=== PATIENT | female | born 1985 ===

== ENCOUNTER → 2017-03-13 | Outpatient (CLI) | payer OTHER ==
[~2017-03-13] MED LIST: BASAGLAR K100 UNIT/1 SC; CIPR500 PO; CYCL10 PO; DUETACT; ESCI5 PO; FENO48 PO; GABA300 PO; GLYB5 PO; GLYMET5; HORMONE; HYDACE5 PO; INS70/30I; LISI20 PO; LISI5 PO; Lomotil Tablet1 EACH PO; METF500 PO; METO100ER PO; NUVA RING; ONDA4ODT MM; ONDA8 PO; Omeprazole20 M1 PO; Pepcid40 MG PO; RIFA300 PO; SULTRIDS PO; Zofran8 MG PO
[2017-03-13 17:15] LABS: BASOPHILS ABSOLUTE AUTO 0.06 K/mm3 (0.00-0.23); BASOPHILS PERCENT AUTO 1 % (0-2); EOSINOPHILS ABSOLUTE AUTO 0.11 K/mm3 (0.00-0.68); EOSINOPHILS PERCENT AUTO 1 % (0-6); Hematocrit 44.6 % (33.0-51.0); Hemoglobin 15.2 g/dL (11.5-16.0); IMMATURE GRAN PERCENT AUTO 1 % (0-1); LYMPHOCYTES ABSOLUTE AUTO 0.86 K/mm3 (0.84-5.20); LYMPHOCYTES PERCENT AUTO 7 % (21-46); MONOCYTES ABSOLUTE AUTO 0.79 K/mm3 (0.16-1.47); MONOCYTES PERCENT AUTO 7 % (4-13); Mean Corpuscular HGB 27.6 pg (26.0-34.0); Mean Corpuscular HGB Conc 34.1 g/dL (31.5-36.5); Mean Corpuscular Volume 81 fL (80-100); NEUTROPHILS ABSOLUTE AUTO 10.31 K/mm3 (1.96-9.15); NEUTROPHILS PERCENT AUTO 84 % (41-73); Platelet Count 255 K/mm3 (150-400); RDW Coefficient Variation 13.7 % (11.7-14.2); RDW Standard Deviation 39.6 fL (35.1-46.3); Red Blood Cell Count 5.51 M/mm3 (3.80-5.20); White Blood Cell Count 12.23 K/mm3 (4.00-11.30)
[2017-03-13 17:31] LABS: Alanine Aminotransfer (ALT/SGP 26 U/L (12-78); Albumin, Blood 3.1 g/dL (3.4-5.0); Albumin/Globulin Ratio 0.7 (0.8-1.8); Alk Phos 87 U/L (40-126); Anion Gap 14 mmol/L (6-16); Aspartate Aminotrans (AST/SGOT 14 U/L (12-37); Bilirubin, Total 0.5 mg/dL (0.1-1.0); Blood Urea Nitrogen 10 mg/dL (8-24); Bun/Creatinine Ratio 9.6 (12.0-20.0); CO2, Blood 21 mmol/L (21-32); Calcium, Blood 8.7 mg/dL (8.5-10.1); Chloride, Blood 99 mmol/L (98-108); Creatinine, Blood 1.04 mg/dL (0.40-1.00); Globulin, Blood 4.3 g/dL (2.2-4.0); Glomerular Filtration Rate >60 (60-); Glucose, Blood 405 mg/dL (70-99); Potassium, Blood 4.1 mmol/L (3.5-5.5); Sodium, Blood 134 mmol/L (136-145); Total Protein, Blood 7.4 g/dL (6.4-8.2)
== END | disposition home or self-care (01) ==
LOC: LAB EV 17:12
PROVIDERS: Physician Assistant Medical
DX: K52.9 Noninfective gastroenteritis and colitis, unspecified (principal)
CPT/HCPCS: 80053; 83690; 85025

== ENCOUNTER → 2017-06-12 | Outpatient (CLI) | payer OTHER ==
[~2017-06-12] MED LIST changes: -Lomotil Tablet1 EACH PO; -Omeprazole20 M1 PO
== END | disposition home or self-care (01) ==
LOC: LAB EV 18:56 → LAB SHORT 18:56
DX: N39.0 Urinary tract infection, site not specified (principal)
CPT/HCPCS: 87077; 87086; 87186

== ENCOUNTER 2017-09-18 13:31 | Emergency (ER) | payer OTHER ==
[~2017-09-18] VITALS: Ht 182.9 cm; Wt 151.9 kg
[2017-09-18 15:18] LABS: BASOPHILS ABSOLUTE AUTO 0.06 K/mm3 (0.00-0.23); BASOPHILS PERCENT AUTO 1 % (0-2); EOSINOPHILS ABSOLUTE AUTO 0.14 K/mm3 (0.00-0.68); EOSINOPHILS PERCENT AUTO 1 % (0-6); Hemoglobin 14.4 g/dL (11.5-16.0); IMMATURE GRAN ABSOLUTE AUTO 0.07 K/mm3 (0.00-0.10); IMMATURE GRAN PERCENT AUTO 1 % (0-1); LYMPHOCYTES ABSOLUTE AUTO 3.28 K/mm3 (0.84-5.20); LYMPHOCYTES PERCENT AUTO 30 % (21-46); MONOCYTES ABSOLUTE AUTO 0.75 K/mm3 (0.16-1.47); MONOCYTES PERCENT AUTO 7 % (4-13); Mean Corpuscular HGB 28.2 pg (26.0-34.0); Mean Corpuscular HGB Conc 34.3 g/dL (31.5-36.5); Mean Corpuscular Volume 82 fL (80-100); Mean Platelet Volume 10.1 fL (9.1-12.4); NEUTROPHILS ABSOLUTE AUTO 6.64 K/mm3 (1.96-9.15); NEUTROPHILS PERCENT AUTO 61 % (41-73); Platelet Count 262 K/mm3 (150-400); RDW Coefficient Variation 12.9 % (11.7-14.2); RDW Standard Deviation 38.5 fL (35.1-46.3); Red Blood Cell Count 5.11 M/mm3 (3.80-5.20); White Blood Cell Count 10.94 K/mm3 (4.00-11.30)
[2017-09-18 15:45] LABS: Alanine Aminotransfer (ALT/SGP 25 U/L (12-78); Albumin, Blood 3.2 g/dL (3.4-5.0); Albumin/Globulin Ratio 0.7 (0.8-1.8); Alk Phos 106 U/L (50-136); Anion Gap 11 mmol/L (6-16); Aspartate Aminotrans (AST/SGOT 9 U/L (12-37); Bilirubin, Total 0.3 mg/dL (0.1-1.0); Blood Urea Nitrogen 11 mg/dL (8-24); Bun/Creatinine Ratio 17.9 (12.0-20.0); CO2, Blood 20 mmol/L (21-32); Calcium, Blood 8.6 mg/dL (8.5-10.1); Chloride, Blood 103 mmol/L (98-108); Creatinine, Blood 0.61 mg/dL (0.40-1.00); Globulin, Blood 4.3 g/dL (2.2-4.0); Glomerular Filtration Rate >60 (60-); Glucose, Blood 471 mg/dL (70-99); Potassium, Blood 4.7 mmol/L (3.5-5.5); Sodium, Blood 134 mmol/L (136-145); Total Protein, Blood 7.5 g/dL (6.4-8.2)
[2017-09-18] MEDS ORDERED: Omeprazole20 M1 PO (16:46)
[2017-09-18] MEDS ORDERED: Lomotil Tablet1 EACH PO (18:42)
== END 2017-09-18 18:55 | disposition home or self-care (01) ==
LOC: ER 13:31
PROVIDERS: Emergency Medicine
DX: R19.7 Diarrhea, unspecified (principal); E11.9 Type 2 diabetes mellitus without complications; I10 Essential (primary) hypertension; Z79.899 Other long term (current) drug therapy; Z79.4 Long term (current) use of insulin
CPT/HCPCS: 36415; 80053; 83690; 85025; 99284

== ENCOUNTER → 2017-11-01 | Outpatient (CLI) | payer OTHER ==
[~2017-11-01] MED LIST changes: +Lomotil Tablet1 EACH PO; +Omeprazole20 M1 PO
== END | disposition home or self-care (01) ==
LOC: LAB SHORT 07:59 → PLD 07:59
DX: N72 Inflammatory disease of cervix uteri (principal); N87.9 Dysplasia of cervix uteri, unspecified
CPT/HCPCS: 88305

== ENCOUNTER 2018-02-13 14:07 | Emergency (ER) | payer OTHER ==
[~2018-02-13] VITALS: Ht 182.9 cm; Wt 147.4 kg
[2018-02-13 15:02] LABS: Source, Urine Clean Catch
[2018-02-13 15:08] LABS: Bilirubin, Urine Neg (Neg); Blood, Urine 5+ (Neg); Glucose Qualitative, Urine 4+ (Neg); Ketones, Urine 1+ (Neg); Leukocyte Esterase, Urine 3+ (Neg); Nitrite, Urine Neg (Neg); Protein, Urine 3+ (Neg); Specific Gravity, Urine 1.025 (1.003-1.022); Urobilinogen, Urine NORM (Normal)
[2018-02-13 15:27] LABS: Appearance, Urine Hazy (Clear); Color, Urine Yellow (P-Yellow)
[2018-02-13 15:28] LABS: White Blood Cells, Urine TNTC /hpf (0-5)
[2018-02-13 15:29] LABS: Squamous Epithelial Cells Few /hpf (Few)
[2018-02-13 15:30] LABS: Bacteria Few /hpf
== END 2018-02-13 16:14 | disposition home or self-care (01) ==
LOC: ER 14:07
PROVIDERS: Physician Assistant
DX: N39.0 Urinary tract infection, site not specified (principal); Z79.899 Other long term (current) drug therapy; Z79.4 Long term (current) use of insulin; E11.9 Type 2 diabetes mellitus without complications; I10 Essential (primary) hypertension; Z87.891 Personal history of nicotine dependence
CPT/HCPCS: 81001; 81025; 87077; 87086; 87186; 99283

== ENCOUNTER → 2018-02-20 | Outpatient (CLI) | payer OTHER | END | disposition home or self-care (01) | LOC: LAB EV 17:32 → LAB SHORT 17:32 | DX: R30.0 Dysuria (principal) | CPT/HCPCS: 87077; 87086; 87106; 87186 ==

== ENCOUNTER 2018-06-03 19:34 | Emergency (ER) | payer OTHER ==
[~2018-06-03] VITALS: Ht 182.9 cm; Wt 145.2 kg
[2018-06-03] MEDS ORDERED: Glucophage1000 MG PO (20:41)
[2018-06-03] MEDS ORDERED: METO50ER PO (20:42)
[2018-06-03] MEDS ORDERED: BASAGLAR K100 UNIT/1 SC (20:43)
[2018-06-03] MEDS ORDERED: Vibramycin100 MG PO (20:50)
== END 2018-06-03 21:17 | disposition home or self-care (01) ==
LOC: ER 19:34
DX: J18.9 Pneumonia, unspecified organism (principal); I10 Essential (primary) hypertension; Z79.899 Other long term (current) drug therapy; Z79.4 Long term (current) use of insulin; Z87.891 Personal history of nicotine dependence
CPT/HCPCS: 71046; 99283-25

== ENCOUNTER → 2018-10-02 | Outpatient (CLI) | payer OTHER ==
[~2018-10-02] MED LIST changes: +ESCITALOPRAM OX10 MG PO; +FENO145 PO; +FLUC200 PO; +Glucophage1000 MG PO; +METFORMIN HCL500 MG PO; +METO50ER PO; +OMEPRAZOLE20 MG PO; +Vibramycin100 MG PO
[2018-10-03 06:10] LABS: Candida species (DNA Probe) Negative (NEGATIVE); G. vaginalis (DNA Probe) Negative (NEGATIVE); T. vaginalis (DNA Probe) Negative (NEGATIVE)
== END | disposition home or self-care (01) ==
LOC: LAB SHORT 19:31 → LAB 19:31
PROVIDERS: Obstetrics & Gynecology
DX: N76.0 Acute vaginitis (principal)
CPT/HCPCS: 87480; 87510; 87660

== ENCOUNTER 2018-10-16 09:56 | Emergency (ER) | payer OTHER ==
[~2018-10-16] VITALS: Ht 182.9 cm; Wt 158.8 kg
[~2018-10-16 09:56] MED LIST changes: -ESCITALOPRAM OX10 MG PO; -FENO145 PO; -FLUC200 PO; -METFORMIN HCL500 MG PO; -OMEPRAZOLE20 MG PO
[2018-10-16] MEDS ORDERED: METFORMIN HCL500 MG PO (10:35)
[2018-10-16] MEDS ORDERED: ESCITALOPRAM OX10 MG PO (10:36)
[2018-10-16] MEDS ORDERED: FENO145 PO (10:37)
[2018-10-16] MEDS ORDERED: OMEPRAZOLE20 MG PO (10:38)
[2018-10-16 11:21] LABS: BASOPHILS ABSOLUTE AUTO 0.04 K/mm3 (0.00-0.23); BASOPHILS PERCENT AUTO 1 % (0-2); EOSINOPHILS ABSOLUTE AUTO 0.08 K/mm3 (0.00-0.68); EOSINOPHILS PERCENT AUTO 1 % (0-6); Hematocrit 39.2 % (33.0-51.0); Hemoglobin 13.2 g/dL (11.5-16.0); IMMATURE GRAN ABSOLUTE AUTO 0.04 K/mm3 (0.00-0.10); IMMATURE GRAN PERCENT AUTO 1 % (0-1); LYMPHOCYTES ABSOLUTE AUTO 2.39 K/mm3 (0.84-5.20); LYMPHOCYTES PERCENT AUTO 32 % (21-46); MONOCYTES ABSOLUTE AUTO 0.47 K/mm3 (0.16-1.47); MONOCYTES PERCENT AUTO 6 % (4-13); Mean Corpuscular HGB 27.9 pg (26.0-34.0); Mean Corpuscular HGB Conc 33.7 g/dL (31.5-36.5); Mean Corpuscular Volume 83 fL (80-100); Mean Platelet Volume 9.7 fL (9.1-12.4); NEUTROPHILS ABSOLUTE AUTO 4.36 K/mm3 (1.96-9.15); NEUTROPHILS PERCENT AUTO 59 % (41-73); Platelet Count 215 K/mm3 (150-400); RDW Coefficient Variation 12.9 % (11.7-14.2); RDW Standard Deviation 38.7 fL (35.1-46.3); Red Blood Cell Count 4.73 M/mm3 (3.80-5.20); White Blood Cell Count 7.38 K/mm3 (4.00-11.30)
[2018-10-16 11:43] LABS: Alanine Aminotransfer (ALT/SGP 20 U/L (12-78); Albumin, Blood 2.7 g/dL (3.4-5.0); Albumin/Globulin Ratio 0.6 (0.8-1.8); Alk Phos 67 U/L (50-136); Anion Gap 7 mmol/L (6-16); Aspartate Aminotrans (AST/SGOT 11 U/L (12-37); Bilirubin, Total 0.3 mg/dL (0.1-1.0); Blood Urea Nitrogen 14 mg/dL (8-24); Bun/Creatinine Ratio 28.8 (12.0-20.0); CO2, Blood 24 mmol/L (21-32); Calcium, Blood 8.4 mg/dL (8.5-10.1); Chloride, Blood 105 mmol/L (98-108); Creatinine, Blood 0.49 mg/dL (0.40-1.00); Globulin, Blood 4.2 g/dL (2.2-4.0); Glomerular Filtration Rate >60 (60-); Glucose, Blood 291 mg/dL (70-99); Potassium, Blood 4.1 mmol/L (3.5-5.5); Sodium, Blood 136 mmol/L (136-145); Total Protein, Blood 6.9 g/dL (6.4-8.2)
[2018-10-16] MEDS ORDERED: FLUC200 PO (12:06)
== END 2018-10-16 12:33 | disposition home or self-care (01) ==
LOC: ER 09:56
PROVIDERS: Emergency Medicine
DX: L03.032 Cellulitis of left toe (principal); L03.031 Cellulitis of right toe; B37.2 Candidiasis of skin and nail; I10 Essential (primary) hypertension; E11.9 Type 2 diabetes mellitus without complications; Z87.891 Personal history of nicotine dependence; Z79.899 Other long term (current) drug therapy; Z79.84 Long term (current) use of oral hypoglycemic drugs
CPT/HCPCS: 80053; 85025; 96365; 99284-25; J1956; J7030

== ENCOUNTER 2019-01-03 13:09 | Day surgery (SDC) | payer OTHER ==
[~2019-01-03] VITALS: Ht 182.9 cm; Wt 137.2 kg
[~2019-01-03 13:09] MED LIST changes: +ESCITALOPRAM OX10 MG PO; +FENO145 PO; +FLUC200 PO; +INSULANPEN; +METFORMIN HCL500 MG PO; +Nuvaring Vagin1 EACH VAG; +OMEPRAZOLE20 MG PO
--- NOTE | 2019-01-03 14:03 | NUR ---
01/03/19 1403 Masha Montero CALL LIGHT WITHIN REACH. FAMILY AT BEDSIDE.
== END 2019-01-03 16:05 | disposition home or self-care (01) ==
LOC: ORSCSDS 13:09
PROVIDERS: Podiatrist
PROC: 0QBN0ZZ Excision of Right Metatarsal, Open Approach (ICD-10-PCS; principal; 2019-01-03 14:30)
DX: M84.871 Other disorders of continuity of bone, right ankle and foot (principal); Q66.89 Other specified congenital deformities of feet; I10 Essential (primary) hypertension; E11.9 Type 2 diabetes mellitus without complications; Z79.899 Other long term (current) drug therapy; E66.01 Morbid (severe) obesity due to excess calories; Z68.41 Body mass index [BMI] 40.0-44.9, adult
CPT/HCPCS: 82947; 88305; 88311; J0690; J2001; J2250; J2704; J3010; J7120

== ENCOUNTER → 2019-02-09 | Outpatient (CLI) | payer OTHER ==
[2019-02-09 14:53] LABS: BASOPHILS ABSOLUTE AUTO 0.05 K/mm3 (0.00-0.23); BASOPHILS PERCENT AUTO 0 % (0-2); EOSINOPHILS ABSOLUTE AUTO 0.22 K/mm3 (0.00-0.68); EOSINOPHILS PERCENT AUTO 2 % (0-6); Hematocrit 38.2 % (33.0-51.0); Hemoglobin 12.8 g/dL (11.5-16.0); IMMATURE GRAN ABSOLUTE AUTO 0.03 K/mm3 (0.00-0.10); IMMATURE GRAN PERCENT AUTO 0 % (0-1); LYMPHOCYTES ABSOLUTE AUTO 3.78 K/mm3 (0.84-5.20); LYMPHOCYTES PERCENT AUTO 32 % (21-46); MONOCYTES ABSOLUTE AUTO 0.66 K/mm3 (0.16-1.47); MONOCYTES PERCENT AUTO 6 % (4-13); Mean Corpuscular HGB 27.4 pg (26.0-34.0); Mean Corpuscular HGB Conc 33.5 g/dL (31.5-36.5); Mean Corpuscular Volume 82 fL (80-100); NEUTROPHILS PERCENT AUTO 60 % (41-73); Platelet Count 281 K/mm3 (150-400); RDW Coefficient Variation 13.2 % (11.7-14.2); RDW Standard Deviation 38.8 fL (35.1-46.3); Red Blood Cell Count 4.68 M/mm3 (3.80-5.20); White Blood Cell Count 11.94 K/mm3 (4.00-11.30)
== END | disposition home or self-care (01) ==
LOC: LAB 14:15 → LAB SHORT 14:15
PROVIDERS: Nurse Practitioner
DX: R22.41 Localized swelling, mass and lump, right lower limb (principal)
CPT/HCPCS: 85025; 85651

== ENCOUNTER → 2019-03-13 | Outpatient (CLI) | payer OTHER | END | disposition home or self-care (01) | LOC: LAB 13:49 → LAB SHORT 13:49 | DX: E11.65 Type 2 diabetes mellitus with hyperglycemia (principal) | CPT/HCPCS: 87070; 87205 ==

== ENCOUNTER → 2019-05-06 | Outpatient (CLI) | payer OTHER | END | disposition home or self-care (01) | LOC: LAB SHORT 19:19 → LAB 19:19 | DX: L03.032 Cellulitis of left toe (principal); L97.521 Non-pressure chronic ulcer of other part of left foot limited to breakdown of skin | CPT/HCPCS: 87070; 87147; 87205 ==

== ENCOUNTER → 2019-10-09 | Outpatient (CLI) | payer OTHER ==
[2019-10-09 15:39] LABS: Source, Urine Clean Catch
[2019-10-09 19:11] LABS: Appearance, Urine Cloudy (Clear); Bilirubin, Urine Neg (Neg); Blood, Urine 4+ (Neg); Color, Urine Yellow (P-Yellow); Glucose Qualitative, Urine Neg (Neg); Ketones, Urine Neg (Neg); Leukocyte Esterase, Urine Neg (Neg); Nitrite, Urine Neg (Neg); Protein, Urine 3+ (Neg); Specific Gravity, Urine 1.025 (1.003-1.022); Urobilinogen, Urine NORM (Normal)
[2019-10-09 19:17] LABS: Amorphous Light (0-Heavy); Bacteria Many /hpf; Mucus Light (0-Heavy); Red Blood Cells, Urine 0-2 /hpf (0-2); Squamous Epithelial Cells Not Seen /hpf (Few)
== END | disposition home or self-care (01) ==
LOC: LAB SHORT 15:36 → LAB 15:36
PROVIDERS: Family Medicine
DX: E86.0 Dehydration (principal); R42 Dizziness and giddiness
CPT/HCPCS: 81001

== ENCOUNTER 2021-04-19 18:29 | Inpatient (IN) | payer OTHER ==
[~2021-04-19] VITALS: Ht 182.9 cm; Wt 140.6 kg
[~2021-04-19 18:29] MED LIST changes: +Buspirone HCl15 MG PO; +LABE100 PO; +PRENATAL TABLE1 EAC2 PO
[2021-04-19 21:21] LABS: BASOPHILS ABSOLUTE AUTO 0.05 K/mm3 (0.00-0.23); BASOPHILS PERCENT AUTO 0 % (0-2); EOSINOPHILS ABSOLUTE AUTO 0.13 K/mm3 (0.00-0.68); EOSINOPHILS PERCENT AUTO 1 % (0-6); Hematocrit 32.5 % (33.0-51.0); IMMATURE GRAN ABSOLUTE AUTO 0.06 K/mm3 (0.00-0.10); IMMATURE GRAN PERCENT AUTO 0 % (0-1); LYMPHOCYTES ABSOLUTE AUTO 3.55 K/mm3 (0.84-5.20); LYMPHOCYTES PERCENT AUTO 23 % (21-46); MONOCYTES ABSOLUTE AUTO 1.03 K/mm3 (0.16-1.47); MONOCYTES PERCENT AUTO 7 % (4-13); Mean Corpuscular HGB 29.3 pg (26.0-34.0); Mean Corpuscular HGB Conc 33.8 g/dL (31.5-36.5); Mean Corpuscular Volume 87 fL (80-100); Mean Platelet Volume 10.3 fL (9.1-12.4); NEUTROPHILS ABSOLUTE AUTO 10.76 K/mm3 (1.96-9.15); NEUTROPHILS PERCENT AUTO 69 % (41-73); Platelet Count 179 K/mm3 (150-400); RDW Coefficient Variation 12.8 % (11.7-14.2); RDW Standard Deviation 39.6 fL (35.1-46.3); Red Blood Cell Count 3.75 M/mm3 (3.80-5.20); White Blood Cell Count 15.58 K/mm3 (4.00-11.30)
[2021-04-19 21:39] LABS: Alanine Aminotransfer (ALT/SGP 18 U/L (12-78); Albumin, Blood 2.2 g/dL (3.4-5.0); Albumin/Globulin Ratio 0.5 (0.8-1.8); Alk Phos 141 U/L (50-136); Anion Gap 9 mmol/L (6-16); Aspartate Aminotrans (AST/SGOT 16 U/L (12-37); Bilirubin, Total 0.1 mg/dL (0.1-1.0); Blood Urea Nitrogen 18 mg/dL (8-24); CO2, Blood 21 mmol/L (21-32); Calcium, Blood 8.6 mg/dL (8.5-10.1); Chloride, Blood 110 mmol/L (98-108); Creatinine, Blood 0.78 mg/dL (0.40-1.00); Globulin, Blood 4.1 g/dL (2.2-4.0); Glomerular Filtration Rate >60 (60-); Glucose, Blood 205 mg/dL (70-99); Potassium, Blood 4.1 mmol/L (3.5-5.5); Sodium, Blood 140 mmol/L (136-145); Total Protein, Blood 6.3 g/dL (6.4-8.2)
[2021-04-19] MEDS ORDERED: Labetalol HCl300 MG PO (21:42)
[2021-04-19] MEDS ORDERED: NIFE30ER PO (21:43)
[2021-04-19 22:01] LABS: Influenza A, PCR NEGATIVE (NEGATIVE); Influenza B, PCR NEGATIVE (NEGATIVE); Resp Syncytial Virus, PCR NEGATIVE (NEGATIVE); SARS-Cov-2 (COVID-19) PCR, MMC NEGATIVE (NEGATIVE)
--- NOTE | 2021-04-20 07:49 | NUR ---
PT'S BLOOD PRESSURES THIS MORNING DURING MY ASSESSMENT WAS 193/96 AND A FEW MINUTES LATER 186/94. EANSONU BURRELL WAS CONTACTED AND WE DISCUSSED HYPERTENSIVE PROTOCOL. EAN GAVE ORDERS TO GIVE 30MG NIFEDIPINE XL, LEBETOLOL 300MG, AND QUICK ACTING 20MG NIFEDIPINE. EAN REPORTED SHE WOULD BE IN THIS AM TO ASSESS PT. EAN REPORTED THAT SHE DID NOT WANT TO START MAGNESIUM AT THIS POINT BUT TO CONTACT HER IF PT'S BP DOES NOT COME DOWN WITH MEDICATIONS.
--- NOTE | 2021-04-20 16:21 | NUR ---
Tiesha BURRELL CONTACTED AND ADVISED THAT PT'S BLOOD PRESSURE WAS 195/92. PROVIDER ORDERED IV 20MG LEBETOLOL AND 200MG LEBETOLOL PO IF SECOND BLOOD PRESSURE 15 MINUTES FROM THE LAST IS ALSO ELEVATED. .
--- NOTE | 2021-04-20 17:30 | NUR ---
Tiesha BURRELL CONTACTED AND TOLD THAT PT WAS GIVEN THE ORDERED 200MG LEBETOLOL PO, 20MG LEBETOLOL IV, THEN 10 MINUTES LATER THE 40MG OF LEBETOLOL IV. PROVIDER WAS TOLD THAT BLOOD PRESSURES ARE STILL 170'S/80'S-190'S/90'S. PROVIDER ADVISED TO GIVE 20MG OF NIFEDIPINE PO AND TO CALL HER IF BP DOES NOT COME DOWN AFTER IT IS GIVEN.
--- NOTE | 2021-04-20 18:53 | NUR ---
PT WAS ONLY GIVEN 50MG OF THE 80MG OF THE LEBETOLOL PROTOCOL DUE TO BP DROPPING TO 129/68 AND PT FEELING SYMPTOMATIC. WILL CONTACT Tiesha BURRELL AND LET HER KNOW.
[2021-04-21 18:55] LABS: BASOPHILS ABSOLUTE AUTO 0.05 K/mm3 (0.00-0.23); BASOPHILS PERCENT AUTO 0 % (0-2); EOSINOPHILS ABSOLUTE AUTO 0.04 K/mm3 (0.00-0.68); EOSINOPHILS PERCENT AUTO 0 % (0-6); Hematocrit 35.3 % (33.0-51.0); Hemoglobin 12.4 g/dL (11.5-16.0); IMMATURE GRAN ABSOLUTE AUTO 0.12 K/mm3 (0.00-0.10); IMMATURE GRAN PERCENT AUTO 1 % (0-1); LYMPHOCYTES ABSOLUTE AUTO 2.27 K/mm3 (0.84-5.20); LYMPHOCYTES PERCENT AUTO 13 % (21-46); MONOCYTES ABSOLUTE AUTO 0.97 K/mm3 (0.16-1.47); MONOCYTES PERCENT AUTO 6 % (4-13); Mean Corpuscular HGB 29.6 pg (26.0-34.0); Mean Corpuscular HGB Conc 35.1 g/dL (31.5-36.5); Mean Corpuscular Volume 84 fL (80-100); Mean Platelet Volume 9.5 fL (9.1-12.4); NEUTROPHILS ABSOLUTE AUTO 13.74 K/mm3 (1.96-9.15); NEUTROPHILS PERCENT AUTO 80 % (41-73); Platelet Count 179 K/mm3 (150-400); RDW Coefficient Variation 12.6 % (11.7-14.2); Red Blood Cell Count 4.19 M/mm3 (3.80-5.20); White Blood Cell Count 17.19 K/mm3 (4.00-11.30)
[2021-04-21 22:20] LABS: PCO2 Cord - Arterial 54.2 mmHg (40-50); PO2 Cord - Arterial < 14 mmHg (16-20); pH Cord - Arterial 7.22 (7.28-7.35)
[2021-04-21 22:23] LABS: PCO2 Cord - Venous 53.8 mmHg (40-50); PO2 Cord - Venous < 14 mmHg (28-32); pH Umbilical Cord - Venous 7.25 (7.26-7.35)
--- NOTE | 2021-04-21 23:00 | NUR ---
MAGNESIUM RESTARTED AT 2G/HR
--- NOTE | 2021-04-21 23:18 | NUR ---
KARLA NOTIFIED OF HIGH BP AND RN OKAY TO GIVE 300MG LABETOLOL PO
[2021-04-22 05:52] LABS: BASOPHILS ABSOLUTE AUTO 0.04 K/mm3 (0.00-0.23); BASOPHILS PERCENT AUTO 0 % (0-2); EOSINOPHILS ABSOLUTE AUTO 0.03 K/mm3 (0.00-0.68); EOSINOPHILS PERCENT AUTO 0 % (0-6); Hemoglobin 9.6 g/dL (11.5-16.0); IMMATURE GRAN PERCENT AUTO 1 % (0-1); LYMPHOCYTES ABSOLUTE AUTO 2.78 K/mm3 (0.84-5.20); LYMPHOCYTES PERCENT AUTO 15 % (21-46); MONOCYTES ABSOLUTE AUTO 1.43 K/mm3 (0.16-1.47); MONOCYTES PERCENT AUTO 8 % (4-13); Mean Corpuscular HGB 29.2 pg (26.0-34.0); Mean Corpuscular HGB Conc 34.3 g/dL (31.5-36.5); Mean Corpuscular Volume 85 fL (80-100); Mean Platelet Volume 9.7 fL (9.1-12.4); NEUTROPHILS ABSOLUTE AUTO 14.23 K/mm3 (1.96-9.15); NEUTROPHILS PERCENT AUTO 77 % (41-73); Platelet Count 151 K/mm3 (150-400); RDW Coefficient Variation 12.6 % (11.7-14.2); RDW Standard Deviation 38.3 fL (35.1-46.3); Red Blood Cell Count 3.29 M/mm3 (3.80-5.20); White Blood Cell Count 18.61 K/mm3 (4.00-11.30)
--- NOTE | 2021-04-23 06:30 | NUR ---
PATIENT WAS HAVING ELEVATED BLOOD PRESSURES, DESPITE PAIN CONTROL AND EMPTYING HER BLADDER. CALL TO PATIENT'S PROVIDER, FAUSTINA BURRELL. SHE WAS NOTIFIED OF ELEVATED BLOOD PRESSURES AND SHE REQUESTED THAT PATIENT'S 0900 DOSE OF LABTELOL AND NIFEDIPINE BE GIVEN NOW. SHE ALSO REQUESTED THAT THE DOSE OF LABETOLOL BE INCREASED TO 200 MG BID. ORDERS ENTERED AND PATIENT GIVEN MEDICATION. FOLLOWING BLOOD PRESSURE WERE DECREASED. PLEASE SEE VITAL SIGNS.
--- NOTE | 2021-04-23 22:55 | NUR ---
PATIENT'S SYSTOLIC BP HAS BEEN 150-160 FOR THE PAST SEVERAL HOURS. PATIENT NOT DUE FOR LABETALOL AGAIN UNTIL 0500. NOTIFIED FAUSTINA BURRELL. SHE ADVISED TO GIVE PATIENT LABETALOL 100 MG NOW AND INCREASE FOLLOWING DOSE TO 300 MG AT 0500 AND 1700. ORDERS ENTERED AND ADMINISTERED MEDICATION.
--- NOTE | 2021-04-24 23:30 | NUR ---
PATIENT'S BLOOD PRESSURE HAVE BEEN BORDERLINE ELEVATED THIS EVENING. DISCUSSED THIS WITH THE HOSPITAL PLAN ADMINISTRATOR PROVIDER (ROCIO VIZCARRA) WHO ADVISED TO CONTINUE TO MONITOR.
--- NOTE | 2021-04-25 04:53 | NUR ---
PATIENT'S BLOOD PRESSURE ELEVATED AT 161/76 @ 0451. DUE FOR LABETALOL 300 MG AT 0500. NOTIFIED CHARGE NURSE.
--- NOTE | 2021-04-26 02:43 | NUR ---
0150: PATIENT HAD TWO SEVERELY ELEVATED BLOOD PRESSURES. SHE WAS DUE FOR LABETALOL AT 0200. CALL TO ROCIO VIZCARRA (HR REPRESENTATIVE PROVIDER) PER PROTOCOL. SHE ADVISED TO GIVE PATIENT SCHEDULED DOSE OF LABETALOL AND CONTINUING TO MONITOR.
--- NOTE | 2021-04-26 09:19 | NUR ---
CNM in house when bp elevated. PO bp med orders changed. No IV medications ordered, no magnesium sulfate ordered.
--- NOTE | 2021-04-26 14:10 | NUR ---
Entered pt room for check VS after hot tamale worker had left room. and 2 other visitors, who were in room with approval for CSD visit, still in room. VS monitor powered on and when RN asked if someone had just done BP, pt's mother stated she had taken it. RN stated would not retake BP until less people in room. Two visitors exited. Monitor set to take BP in 20 minutes. Will monitor.
--- NOTE | 2021-04-27 04:44 | NUR ---
FOUND MOM ASLEEP IN BED WITH BABY ON CHEST. WOKE MOM UP AND REMINDED HER OF NO COSLEEPING POLICY. MOM C/O PAIN AND REQUESTED MEDICATION ONE TIME THIS SHIFT. MOM ATTENTIVE AND CARING FOR BABY APPROPRIATELY. BABY D/C TO BORDER STATUS. MOM BP HAVE NOT BEEN OVER 160'S SYSTOLIC. MOM HAS THANKED THIS NURSE FOR HELPING AND CARING FOR HER AND BABY. WILL CONTINUE TO [facility].
[2021-04-27] MEDS ORDERED: LIOT5 PO (11:07)
[2021-04-27] MEDS ORDERED: DOCU100 PO (11:07)
[2021-04-27] MEDS ORDERED: DULCOLAX400 MG/5 M PO (11:08)
[2021-04-27] MEDS ORDERED: LANOLIN40 GM TOP (11:09)
[2021-04-27] MEDS ORDERED: NIFE60ER PO (11:09)
[2021-04-27] MEDS ORDERED: Percocet 5-3251 EACH PO (11:10)
[2021-04-27] MEDS ORDERED: SIME80CH PO (11:10)
--- NOTE | 2021-04-27 13:04 | NUR ---
Printed d/c instructions and teaching reviewed w/pt and . Questions answered to their satisfaction, deny additional questions/concerns. Verbalize understanding of follow up, medications and teaching. ID bands matched w/nb. Pt d/c'd home ambulatory to care of .
== END 2021-04-27 13:00 | disposition home or self-care (01) | DRG 788 ==
LOC: OBS 18:29 → BC 18:35 → OBS 18:45 → BC 18:47
PROVIDERS: Obstetrics & Gynecology; ADMIT Advanced Practice Midwife
PROC: 10H07YZ Insertion of Other Device into Products of Conception, Via Natural or Artificial Opening (ICD-10-PCS; 2021-04-21)
PROC: 10D00Z1 Extraction of Products of Conception, Low, Open Approach (ICD-10-PCS; principal; 2021-04-21 20:30)
DX: O11.4 Pre-existing hypertension with pre-eclampsia, complicating childbirth (principal); Z3A.37 37 weeks gestation of pregnancy; Z37.0 Single live birth; Z20.822 Contact with and (suspected) exposure to COVID-19; O62.1 Secondary uterine inertia; O90.81 Anemia of the puerperium; D64.9 Anemia, unspecified; Z28.21 Immunization not carried out because of patient refusal; O76 Abnormality in fetal heart rate and rhythm complicating labor and delivery; O24.12 Pre-existing type 2 diabetes mellitus, in childbirth; O99.344 Other mental disorders complicating childbirth; F41.9 Anxiety disorder, unspecified; O69.81X0 Labor and delivery complicated by cord around neck, without compression, not applicable or unspecified; Z79.899 Other long term (current) drug therapy
CPT/HCPCS: 0241U; 36415; 51702; 59200; 80053; 82803; 82947; 85025; 86850; 86900; 86901; 86923; A9270; J0690; J1885; J2001; J2210; J2250; J2370; J2405; J2590; J2765; J3010; J3475; J7120

== ENCOUNTER → 2022-03-06 | Outpatient (CLI) | payer OTHER ==
[~2022-03-06] MED LIST changes: +DOCU100 PO; +DULCOLAX400 MG/5 M PO; +LANOLIN40 GM TOP; +LIOT5 PO; +Labetalol HCl300 MG PO; +NIFE30ER PO; +NIFE60ER PO; +Percocet 5-3251 EACH PO; +SIME80CH PO
== END ==
LOC: LAB 13:05 → LAB SHORT 13:05
DX: R30.0 Dysuria (principal)
CPT/HCPCS: 87077; 87086; 87186

== ENCOUNTER → 2023-02-24 | Outpatient (CLI) | payer OTHER | END | disposition home or self-care (01) | LOC: LAB 08:55 → LAB SHORT 08:55 | DX: N39.0 Urinary tract infection, site not specified (principal) | CPT/HCPCS: 87077; 87086; 87186 ==

== ENCOUNTER 2023-08-02 21:45 | Emergency (ER) | payer OTHER ==
[~2023-08-02] VITALS: Ht 182.9 cm; Wt 120.2 kg
[2023-08-02 21:54] VITALS: BP 139/89
== END 2023-08-02 22:46 | disposition home or self-care (01) ==
LOC: ER 21:45
DX: M79.604 Pain in right leg (principal); I10 Essential (primary) hypertension; E11.9 Type 2 diabetes mellitus without complications; Z87.891 Personal history of nicotine dependence; Z79.899 Other long term (current) drug therapy
CPT/HCPCS: 93971; 99283-25

== ENCOUNTER 2023-08-24 09:43 | Day surgery (SDC) | payer OTHER | END 2023-08-24 22:53 | disposition home or self-care (01) | LOC: WOUND 09:43 | DX: E11.621 Type 2 diabetes mellitus with foot ulcer (principal); L97.512 Non-pressure chronic ulcer of other part of right foot with fat layer exposed; I10 Essential (primary) hypertension; M10.9 Gout, unspecified; E03.9 Hypothyroidism, unspecified; E78.5 Hyperlipidemia, unspecified; Z87.891 Personal history of nicotine dependence | CPT/HCPCS: G0463 ==

== ENCOUNTER → 2023-08-25 | Outpatient (CLI) | payer OTHER ==
[2023-08-25 17:09] LABS: Albumin, Blood 2.9 g/dL (3.4-5.0); Albumin/Globulin Ratio 0.7 (0.8-1.8); Bilirubin, Total 0.4 mg/dL (0.1-1.0); Bun/Creatinine Ratio 20.3 (12.0-20.0); Calcium, Blood 8.7 mg/dL (8.5-10.1); Creatinine, Blood 1.23 mg/dL (0.40-1.00); Globulin, Blood 4.1 g/dL (2.2-4.0); Potassium, Blood 3.5 mmol/L (3.5-5.5)
== END | disposition home or self-care (01) ==
LOC: LAB SHORT 16:46 → LAB 16:46
PROVIDERS: Surgery
DX: E11.621 Type 2 diabetes mellitus with foot ulcer (principal); L97.514 Non-pressure chronic ulcer of other part of right foot with necrosis of bone; E03.9 Hypothyroidism, unspecified; M10.9 Gout, unspecified; I10 Essential (primary) hypertension
CPT/HCPCS: 80053; 83036

== ENCOUNTER 2023-08-31 02:26 | Day surgery (SDC) | payer OTHER | END 2023-09-01 22:43 | disposition home or self-care (01) | LOC: WOUND 02:26 | DX: E11.621 Type 2 diabetes mellitus with foot ulcer (principal); L97.512 Non-pressure chronic ulcer of other part of right foot with fat layer exposed; I10 Essential (primary) hypertension; E03.9 Hypothyroidism, unspecified | CPT/HCPCS: G0463 ==

== ENCOUNTER → 2023-09-04 | Outpatient (CLI) | payer OTHER | LOC: LAB 17:58 → LAB SHORT 17:58 | DX: M10.9 Gout, unspecified (principal); E11.621 Type 2 diabetes mellitus with foot ulcer; I10 Essential (primary) hypertension; E03.9 Hypothyroidism, unspecified; L97.514 Non-pressure chronic ulcer of other part of right foot with necrosis of bone | CPT/HCPCS: 84702 ==

== ENCOUNTER 2023-09-05 08:50 | Day surgery (SDC) | payer OTHER | END 2023-09-05 22:44 | disposition home or self-care (01) | LOC: HBO 08:50 | DX: E11.621 Type 2 diabetes mellitus with foot ulcer (principal); L97.514 Non-pressure chronic ulcer of other part of right foot with necrosis of bone; I10 Essential (primary) hypertension; E03.9 Hypothyroidism, unspecified; M10.9 Gout, unspecified | CPT/HCPCS: 82947; G0277 ==

== ENCOUNTER 2023-09-07 03:04 | Day surgery (SDC) | payer OTHER | END 2023-09-07 22:53 | disposition home or self-care (01) | LOC: HBO 03:04 | DX: E11.621 Type 2 diabetes mellitus with foot ulcer (principal); L97.514 Non-pressure chronic ulcer of other part of right foot with necrosis of bone; M10.9 Gout, unspecified; I10 Essential (primary) hypertension; E03.9 Hypothyroidism, unspecified | CPT/HCPCS: 82947; G0277 ==

== ENCOUNTER 2023-09-08 01:55 | Day surgery (SDC) | payer OTHER | END 2023-09-08 22:56 | disposition home or self-care (01) | LOC: HBO 01:55 | DX: E11.621 Type 2 diabetes mellitus with foot ulcer (principal); L97.514 Non-pressure chronic ulcer of other part of right foot with necrosis of bone; I10 Essential (primary) hypertension; E03.9 Hypothyroidism, unspecified; M10.9 Gout, unspecified | CPT/HCPCS: 82947; G0277 ==

== ENCOUNTER 2023-09-11 06:53 | Day surgery (SDC) | payer OTHER | END 2023-09-11 23:56 | disposition home or self-care (01) | LOC: HBO 06:53 | DX: E11.621 Type 2 diabetes mellitus with foot ulcer (principal); L97.514 Non-pressure chronic ulcer of other part of right foot with necrosis of bone; I10 Essential (primary) hypertension; E03.9 Hypothyroidism, unspecified; M10.9 Gout, unspecified | CPT/HCPCS: 82947; G0277 ==

== ENCOUNTER 2023-09-12 01:50 | Day surgery (SDC) | payer OTHER | END 2023-09-12 23:13 | disposition home or self-care (01) | LOC: HBO 01:50 | DX: E11.621 Type 2 diabetes mellitus with foot ulcer (principal); L97.514 Non-pressure chronic ulcer of other part of right foot with necrosis of bone; M10.9 Gout, unspecified; I10 Essential (primary) hypertension; E03.9 Hypothyroidism, unspecified | CPT/HCPCS: 82947; G0277 ==

== ENCOUNTER 2023-09-12 01:51 | Day surgery (SDC) | payer OTHER | END 2023-09-12 23:14 | disposition home or self-care (01) | LOC: WOUND 01:51 | DX: E11.621 Type 2 diabetes mellitus with foot ulcer (principal); L97.512 Non-pressure chronic ulcer of other part of right foot with fat layer exposed; M10.9 Gout, unspecified; I10 Essential (primary) hypertension; E03.9 Hypothyroidism, unspecified | CPT/HCPCS: G0463 ==

== ENCOUNTER 2023-09-13 02:34 | Day surgery (SDC) | payer OTHER | END 2023-09-13 22:54 | disposition home or self-care (01) | LOC: HBO 02:34 | DX: E11.621 Type 2 diabetes mellitus with foot ulcer (principal); L97.514 Non-pressure chronic ulcer of other part of right foot with necrosis of bone; M10.9 Gout, unspecified; I10 Essential (primary) hypertension; E03.9 Hypothyroidism, unspecified | CPT/HCPCS: 82947; G0463 ==

== ENCOUNTER 2023-09-14 02:51 | Day surgery (SDC) | payer OTHER | END 2023-09-14 23:01 | disposition home or self-care (01) | LOC: HBO 02:51 | DX: E11.621 Type 2 diabetes mellitus with foot ulcer (principal); L97.514 Non-pressure chronic ulcer of other part of right foot with necrosis of bone; M10.9 Gout, unspecified; I10 Essential (primary) hypertension; E03.9 Hypothyroidism, unspecified | CPT/HCPCS: 82947; G0277 ==

== ENCOUNTER 2023-09-25 07:52 | Day surgery (SDC) | payer OTHER | END 2023-09-26 00:58 | disposition home or self-care (01) | LOC: WOUND 07:52 | DX: E11.621 Type 2 diabetes mellitus with foot ulcer (principal); L97.514 Non-pressure chronic ulcer of other part of right foot with necrosis of bone; L97.529 Non-pressure chronic ulcer of other part of left foot with unspecified severity; M10.9 Gout, unspecified; I10 Essential (primary) hypertension; E03.9 Hypothyroidism, unspecified | CPT/HCPCS: G0463 ==

== ENCOUNTER 2023-10-03 03:45 | Day surgery (SDC) | payer OTHER | END 2023-10-03 23:14 | disposition home or self-care (01) | LOC: HBO 03:45 | DX: E11.621 Type 2 diabetes mellitus with foot ulcer (principal); L97.514 Non-pressure chronic ulcer of other part of right foot with necrosis of bone; M10.9 Gout, unspecified; E11.59 Type 2 diabetes mellitus with other circulatory complications; M86.671 Other chronic osteomyelitis, right ankle and foot; I10 Essential (primary) hypertension; E03.9 Hypothyroidism, unspecified | CPT/HCPCS: 82947; G0277 ==

== ENCOUNTER 2023-10-04 05:29 | Day surgery (SDC) | payer OTHER | END 2023-10-04 23:07 | disposition home or self-care (01) | LOC: HBO 05:29 | DX: E11.621 Type 2 diabetes mellitus with foot ulcer (principal); L97.514 Non-pressure chronic ulcer of other part of right foot with necrosis of bone; E11.69 Type 2 diabetes mellitus with other specified complication; M86.671 Other chronic osteomyelitis, right ankle and foot; M10.9 Gout, unspecified; I10 Essential (primary) hypertension; E03.9 Hypothyroidism, unspecified | CPT/HCPCS: 82947; G0277 ==

== ENCOUNTER 2023-10-04 05:35 | Day surgery (SDC) | payer OTHER | END 2023-10-04 23:08 | disposition home or self-care (01) | LOC: WOUND 05:35 | DX: E11.621 Type 2 diabetes mellitus with foot ulcer (principal); L97.512 Non-pressure chronic ulcer of other part of right foot with fat layer exposed; L97.519 Non-pressure chronic ulcer of other part of right foot with unspecified severity; M10.9 Gout, unspecified; E11.69 Type 2 diabetes mellitus with other specified complication; M86.671 Other chronic osteomyelitis, right ankle and foot; I10 Essential (primary) hypertension; E03.9 Hypothyroidism, unspecified | CPT/HCPCS: G0463 ==

== ENCOUNTER 2023-10-05 03:04 | Day surgery (SDC) | payer OTHER | END 2023-10-05 22:42 | disposition home or self-care (01) | LOC: HBO 03:04 | DX: E11.621 Type 2 diabetes mellitus with foot ulcer (principal); L97.514 Non-pressure chronic ulcer of other part of right foot with necrosis of bone; E11.69 Type 2 diabetes mellitus with other specified complication; M86.671 Other chronic osteomyelitis, right ankle and foot; M10.9 Gout, unspecified; I10 Essential (primary) hypertension; E03.9 Hypothyroidism, unspecified | CPT/HCPCS: 82947; G0277 ==

== ENCOUNTER 2023-10-06 03:23 | Day surgery (SDC) | payer OTHER | END 2023-10-06 23:45 | disposition home or self-care (01) | LOC: HBO 03:23 | DX: E11.621 Type 2 diabetes mellitus with foot ulcer (principal); L97.514 Non-pressure chronic ulcer of other part of right foot with necrosis of bone; M10.9 Gout, unspecified; E11.59 Type 2 diabetes mellitus with other circulatory complications; M86.671 Other chronic osteomyelitis, right ankle and foot; I10 Essential (primary) hypertension; E03.9 Hypothyroidism, unspecified | CPT/HCPCS: 82947; G0277 ==

== ENCOUNTER 2023-10-18 03:57 | Day surgery (SDC) | payer OTHER | END 2023-10-18 22:41 | disposition home or self-care (01) | LOC: HBO 03:57 | DX: E11.621 Type 2 diabetes mellitus with foot ulcer (principal); L97.514 Non-pressure chronic ulcer of other part of right foot with necrosis of bone; M10.9 Gout, unspecified; E11.69 Type 2 diabetes mellitus with other specified complication; M86.671 Other chronic osteomyelitis, right ankle and foot; E03.9 Hypothyroidism, unspecified; I10 Essential (primary) hypertension | CPT/HCPCS: 82947; G0277 ==

== ENCOUNTER 2023-10-19 01:08 | Day surgery (SDC) | payer OTHER | END 2023-10-19 22:44 | disposition home or self-care (01) | LOC: HBO 01:08 | DX: E11.621 Type 2 diabetes mellitus with foot ulcer (principal); L97.514 Non-pressure chronic ulcer of other part of right foot with necrosis of bone; E11.69 Type 2 diabetes mellitus with other specified complication; M86.671 Other chronic osteomyelitis, right ankle and foot; M10.9 Gout, unspecified; I10 Essential (primary) hypertension; E03.9 Hypothyroidism, unspecified | CPT/HCPCS: 82947; G0277 ==

== ENCOUNTER 2023-11-03 04:57 | Day surgery (SDC) | payer OTHER | END 2023-11-04 01:36 | disposition home or self-care (01) | LOC: HBO 04:57 | DX: E11.621 Type 2 diabetes mellitus with foot ulcer (principal); L97.514 Non-pressure chronic ulcer of other part of right foot with necrosis of bone; M10.9 Gout, unspecified; E11.59 Type 2 diabetes mellitus with other circulatory complications; M86.671 Other chronic osteomyelitis, right ankle and foot; I10 Essential (primary) hypertension; E03.9 Hypothyroidism, unspecified | CPT/HCPCS: 82947 ==

== ENCOUNTER 2023-11-06 04:09 | Day surgery (SDC) | payer OTHER | END 2023-11-06 23:00 | LOC: HBO 04:09 | DX: E11.621 Type 2 diabetes mellitus with foot ulcer (principal); L97.514 Non-pressure chronic ulcer of other part of right foot with necrosis of bone; E11.69 Type 2 diabetes mellitus with other specified complication; M86.671 Other chronic osteomyelitis, right ankle and foot; M10.9 Gout, unspecified; I10 Essential (primary) hypertension; E03.9 Hypothyroidism, unspecified | CPT/HCPCS: 82947; G0277 ==

== ENCOUNTER 2023-11-06 04:20 | Day surgery (SDC) | payer OTHER | END 2023-11-06 23:00 | LOC: WOUND 04:20 | DX: E11.621 Type 2 diabetes mellitus with foot ulcer (principal); L97.519 Non-pressure chronic ulcer of other part of right foot with unspecified severity; E11.69 Type 2 diabetes mellitus with other specified complication; M86.671 Other chronic osteomyelitis, right ankle and foot; M10.9 Gout, unspecified; I10 Essential (primary) hypertension; E03.9 Hypothyroidism, unspecified | CPT/HCPCS: G0463 ==

== ENCOUNTER 2023-11-07 03:07 | Day surgery (SDC) | payer OTHER | END 2023-11-07 23:00 | disposition home or self-care (01) | LOC: HBO 03:07 | DX: E11.621 Type 2 diabetes mellitus with foot ulcer (principal); L97.514 Non-pressure chronic ulcer of other part of right foot with necrosis of bone; E11.69 Type 2 diabetes mellitus with other specified complication; M86.671 Other chronic osteomyelitis, right ankle and foot; M10.9 Gout, unspecified; E03.9 Hypothyroidism, unspecified; I10 Essential (primary) hypertension | CPT/HCPCS: 82947; G0277 ==

== ENCOUNTER 2023-11-09 02:50 | Day surgery (SDC) | payer OTHER | END 2023-11-09 23:00 | disposition home or self-care (01) | LOC: HBO 02:50 | DX: E11.621 Type 2 diabetes mellitus with foot ulcer (principal); L97.514 Non-pressure chronic ulcer of other part of right foot with necrosis of bone; E11.69 Type 2 diabetes mellitus with other specified complication; M86.671 Other chronic osteomyelitis, right ankle and foot; I10 Essential (primary) hypertension; E03.9 Hypothyroidism, unspecified; M10.9 Gout, unspecified | CPT/HCPCS: 82947; G0277 ==

== ENCOUNTER 2023-11-13 04:13 | Day surgery (SDC) | payer OTHER | END 2023-11-14 23:04 | disposition home or self-care (01) | LOC: WOUND 04:13 | DX: E11.621 Type 2 diabetes mellitus with foot ulcer (principal); L97.511 Non-pressure chronic ulcer of other part of right foot limited to breakdown of skin; E11.69 Type 2 diabetes mellitus with other specified complication; M86.671 Other chronic osteomyelitis, right ankle and foot; E11.40 Type 2 diabetes mellitus with diabetic neuropathy, unspecified; I10 Essential (primary) hypertension; E03.9 Hypothyroidism, unspecified; M10.9 Gout, unspecified | CPT/HCPCS: G0463 ==

== ENCOUNTER 2023-11-13 04:18 | Day surgery (SDC) | payer OTHER | END 2023-11-14 23:04 | disposition home or self-care (01) | LOC: HBO 04:18 | DX: E11.69 Type 2 diabetes mellitus with other specified complication (principal); M86.671 Other chronic osteomyelitis, right ankle and foot; E11.621 Type 2 diabetes mellitus with foot ulcer; L97.514 Non-pressure chronic ulcer of other part of right foot with necrosis of bone; E03.9 Hypothyroidism, unspecified; I10 Essential (primary) hypertension | CPT/HCPCS: 82947; G0277 ==

== ENCOUNTER 2023-11-14 01:54 | Day surgery (SDC) | payer OTHER | END 2023-11-14 23:05 | disposition home or self-care (01) | LOC: HBO 01:54 | DX: E11.621 Type 2 diabetes mellitus with foot ulcer (principal); L97.514 Non-pressure chronic ulcer of other part of right foot with necrosis of bone; E11.69 Type 2 diabetes mellitus with other specified complication; M86.671 Other chronic osteomyelitis, right ankle and foot; M10.9 Gout, unspecified; I10 Essential (primary) hypertension; E03.9 Hypothyroidism, unspecified | CPT/HCPCS: 82947; G0277 ==

== ENCOUNTER 2023-11-16 02:09 | Day surgery (SDC) | payer OTHER | END 2023-11-16 23:00 | disposition home or self-care (01) | LOC: HBO 02:09 | DX: E11.621 Type 2 diabetes mellitus with foot ulcer (principal); L97.514 Non-pressure chronic ulcer of other part of right foot with necrosis of bone; E11.69 Type 2 diabetes mellitus with other specified complication; M86.671 Other chronic osteomyelitis, right ankle and foot; M10.9 Gout, unspecified; I10 Essential (primary) hypertension; E03.9 Hypothyroidism, unspecified | CPT/HCPCS: 82947; G0277 ==

== ENCOUNTER → 2024-03-14 | Outpatient (CLI) | payer OTHER | LOC: LAB 11:39 → LAB SHORT 11:39 | DX: R30.0 Dysuria (principal) | CPT/HCPCS: 87086 ==

== ENCOUNTER → 2024-10-16 | Outpatient (CLI) | payer OTHER | END | disposition home or self-care (01) | LOC: LAB 12:03 → LAB SHORT 12:03 | DX: Z32.01 Encounter for pregnancy test, result positive (principal) | CPT/HCPCS: 84702 ==

== ENCOUNTER → 2025-01-14 | Outpatient (CLI) | payer OTHER ==
[2025-01-14 13:00] LABS: Source, Urine Clean Catch
[2025-01-14 13:15] LABS: Bilirubin, Urine Neg (Neg); Color, Urine Yellow (P-Yellow); Glucose Qualitative, Urine Neg (Neg); Ketones, Urine Neg (Neg); Leukocyte Esterase, Urine Neg (Neg); Protein, Urine 2+ (Neg); Specific Gravity, Urine 1.025 (1.003-1.022); Urobilinogen, Urine NORM (Normal)
[2025-01-14 13:59] LABS: Red Blood Cells, Urine 0-2 /hpf (0-2); White Blood Cells, Urine 0-2 /hpf (0-5)
== END | disposition home or self-care (01) ==
LOC: LAB 11:44 → LAB SHORT 11:44
PROVIDERS: Obstetrics & Gynecology
DX: R30.0 Dysuria (principal)
CPT/HCPCS: 81001; 87086